=== PATIENT | female | born 1995 | race Caucasian/White ===

== ENCOUNTER 2017-09-20 20:50 | Emergency (ER) | payer MEDICAID, OTHER ==
[2017-09-20 20:50] VITALS: BMI 31.3
[2017-09-20 21:09] VITALS: RESP 20
[2017-09-20] MEDS: Albuterol-Ipratrop 3 mg / 0.5 (3 ml) UD IH SCH ×2 (21:15→21:32)
--- NOTE | 2017-09-20 21:29 | C.PDOC ---
History Of Present Illness 22-year-old female, presents to the emergency department with complaints of three day duration of cough and worsening asthma. patient notes she ran out of her inhaler meds, prompting visit. Time Seen by Provider: 09/20/17 21:01 Chief Complaint (Nursing): Cough, Cold, Congestion History Per: Patient History/Exam Limitations: no limitations Past Medical History Reviewed: Historical Data, Nursing Documentation, Vital Signs Vital Signs: Last Vital Signs Temp 98.1 F 09/20/17 21:08 Pulse 97 H 09/20/17 21:08 Resp 20 09/20/17 21:08 BP 138/99 H 09/20/17 21:08 Pulse Ox 98 09/20/17 21:29 - Medical History PMH: Anemia, Asthma (NEVER HOSPITALIZED) - [facility] Procedures ARTIF RUPT MEMBRANES NEC (09/20/13) ASPIRAT CURET-POST DELIV (11/04/14) MONITORING NOS (09/20/13) LOW CERVICAL (09/20/13) Family History: States: No Known Family Hx - Social History Hx Alcohol Use: No Hx Substance Use: No - Immunization History Hx Tetanus Toxoid Vaccination: No Hx Influenza Vaccination: No Hx Pneumococcal Vaccination: No Review Of Systems Constitutional: Negative for: Fever Cardiovascular: Negative for: Chest Pain, Palpitations Respiratory: Positive for: Cough, Shortness of Breath, Wheezing Gastrointestinal: Negative for: Vomiting Physical Exam - Physical Exam Appears: Well, Non-toxic, No Acute Distress Skin: Normal Color, Warm, Dry, No Rash Head: Normacephalic Eye(s): bilateral: PERRL Nose: Normal, No Flaring, No Discharge Oral Mucosa: Moist Neck: Normal ROM Chest: Symmetrical Cardiovascular: Rhythm Regular, No Murmur Respiratory: No Decreased Breath Sounds, No Accessory Muscle Use, Wheezing ( mild expiratory) Extremity: Normal ROM Neurological/Psych: Oriented x3, Normal Speech ED Course And Treatment O2 Sat by Pulse Oximetry: 98 Medical Decision Making Medical Decision Making: Impression 22y/o F comes in with cough and asthma exacerbation x3 days. Plan: * Duoneb treatment * peak flow * Urine preg= neg * CXR Reassess and Disposition CXR shows no focal consolidation, infiltrates, pleural effusion or pneumothorax On re-eval, patient has no fever or in any respiratory distress. She reports feeling better. Her O2 saturation has improved. Rx given. Patient is stable for discharge Disposition Counseled Patient/Family Regarding: Diagnosis, Need For Followup, Rx Given - Disposition Disposition: HOME/ ROUTINE Disposition Time: 22:00 Condition: IMPROVED Additional Instructions: Continue using albuterol nebulizer as needed Take prednisone daily to help with asthma Please follow up with your primary medical doctor or clinic in 2-5 days for further evaluation. Return to the emergency department at any time if symptoms persist or worsen. Prescriptions: Albuterol 0.083% [Albuterol 0.083% Inhal Claribel (2.5 mg/3 ml) UD] 2.5 mg IH Q4 # 100 neb Albuterol HFA [Ventolin HFA 90 mcg/actuation (8 g)] 1 puff IH Q4 #1 puff Benzonatate [Tessalon Perles] 100 mg PO TID #30 sgl Prednisone 50 mg PO DAILY #5 tablet Instructions: Asthma, Adult (DC) Forms: [employer] (Paraguayan) - POA Present On Arrival: None - Clinical Impression Clinical Impression: Upper respiratory infection, Asthma exacerbation - Scribe Statement The provider has reviewed the documentation as recorded by the Scribe (Dex Valdivia) All medical record entries made by the Scribe were at my direction and personally dictated by me. I have reviewed the chart and agree that the record accurately reflects my personal performance of the history, physical exam, medical decision making, and the department course for this patient. I have also personally directed, reviewed, and agree with the discharge instructions and disposition.
[2017-09-20] MEDS ORDERED: Albuterol-Ipratrop 3 mg / 0.5 (3 ml) UD ONE (21:37)
[2017-09-20 22:31] VITALS: BP 129/83; PULSE 99; TEMP 98.3
[2017-09-20 22:35] VITALS: O2SAT 98
--- NOTE | 2017-09-21 08:51 | RAD ---
HISTORY: cough, sOB COMPARISON: Chest radiograph dated 08/24/2011 TECHNIQUE: Chest PA and lateral FINDINGS: LUNGS: No active pulmonary disease. PLEURA: No significant pleural effusion identified. No pneumothorax apparent. CARDIOVASCULAR: Normal. OSSEOUS STRUCTURES: No significant abnormalities. VISUALIZED UPPER ABDOMEN: Normal. OTHER FINDINGS: None. IMPRESSION: No active disease.
== END 2017-09-20 22:31 | disposition home or self-care (01) ==
LOC: C.ER 20:50
DX: J45.901 Unspecified asthma with (acute) exacerbation (principal); J06.9 Acute upper respiratory infection, unspecified; F17.210 Nicotine dependence, cigarettes, uncomplicated

== ENCOUNTER 2018-02-10 18:35 | Emergency (ER) | payer OTHER ==
[2018-02-10 18:36] VITALS: BMI 31.3
[2018-02-10 18:42] VITALS: BP 143/96; PULSE 98; RESP 20; TEMP 98.2; O2SAT 97
[2018-02-10] MEDS ORDERED: Naproxen 550 mg Tab PO STA (19:39)
[2018-02-10] MEDS ORDERED: Naproxen 550 mg Tab PO ONE (19:47)
--- NOTE | 2018-02-10 20:09 | C.PDOC ---
History Of Present Illness The patient reports non-traumatic right lower leg pain over the past 3 days which is described as constant and achy. The patient reports that she works at [employer] and stands for over 12 hours per day. Denies trauma, fever, numbness, weakness. Time Seen by Provider: 02/10/18 19:27 Chief Complaint (Nursing): Lower Extremity Problem/Injury History Per: Patient History/Exam Limitations: no limitations Onset/Duration Of Symptoms: Days (3) Current Symptoms Are (Timing): Still Present Recent travel outside of the [place] States: No Past Medical History Reviewed: Historical Data, Nursing Documentation, Vital Signs Vital Signs: Last Vital Signs Temp 98.2 F 02/10/18 18:38 Pulse 98 H 02/10/18 18:38 Resp 20 02/10/18 18:38 BP 143/96 H 02/10/18 18:38 Pulse Ox 97 02/11/18 03:21 - Medical History PMH: Anemia, Asthma (NEVER HOSPITALIZED) - [facility] Procedures ARTIF RUPT MEMBRANES NEC (09/20/13) ASPIRAT CURET-POST DELIV (11/04/14) MONITORING NOS (09/20/13) LOW CERVICAL (09/20/13) Family History: States: No Known Family Hx - Social History Hx Alcohol Use: No Hx Substance Use: No - Immunization History Hx Tetanus Toxoid Vaccination: No Hx Influenza Vaccination: No Hx Pneumococcal Vaccination: No Review Of Systems Constitutional: Negative for: Fever, Chills Gastrointestinal: Negative for: Nausea, Vomiting, Abdominal Pain, Diarrhea Musculoskeletal: Positive for: Leg Pain (Right lower leg ) Skin: Negative for: Rash Neurological: Negative for: Weakness, Numbness Physical Exam - Physical Exam Appears: Well, Non-toxic, No Acute Distress Skin: Normal Color, Warm, Dry Head: Atraumatic, Normacephalic Eye(s): bilateral: Normal Inspection, PERRL, EOMI Oral Mucosa: Moist Neck: Supple Chest: Symmetrical, No Tenderness Cardiovascular: Rhythm Regular, No Murmur Respiratory: Normal Breath Sounds, No Decreased Breath Sounds, No Rales, No Rhonchi, No Wheezing Gastrointestinal/Abdominal: Soft, No Tenderness, No Distention Extremity: Normal ROM, Tenderness (Right anterior leg ), No Deformity, No Swelling Extremity: Bilateral: Atraumatic, Normal Color And Temperature, Normal ROM Pulses: Left Dorsalis Pedis: Normal, Right Dorsalis Pedis: Normal Neurological/Psych: Oriented x3, Normal Speech Gait: Steady ED Course And Treatment O2 Sat by Pulse Oximetry: 97 (RA) Pulse Ox Interpretation: Normal Medical Decision Making Medical Decision Making: Ordered X-Ray of right Ribia Fibula, D-Dimer, and urine test. Administered Anaprox. D dimer is negative and the patient has a low risk for DVT. Xray of the tib/fib is negative for fracture or dislocation. The pain is most likely muscular and on re-exam the patient reports improvement of symptoms and ambulatory in the ED with steady gait. Disposition - Disposition Referrals: Vicki Montilla MD [Medical Doctor] - Disposition: HOME/ ROUTINE Disposition Time: 20:44 Condition: GOOD Additional Instructions: Follow up with the medical doctor/clinic within 1-2 days. Return if worsened. 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 - Scribe Statement The provider has reviewed the documentation as recorded by the Susanibafsaneh Coleman All medical record entries made by the Susanibe were at my direction and personally dictated by me. I have reviewed the chart and agree that the record accurately reflects my personal performance of the history, physical exam, medical decision making, and the department course for this patient. I have also personally directed, reviewed, and agree with the discharge instructions and disposition.
--- NOTE | 2018-02-11 08:42 | RAD ---
Date of service: 02/10/2018 PROCEDURE: Radiographs of the right tibia and fibula. HISTORY: leg pain COMPARISON: None available. TECHNIQUE: Frontal and lateral views obtained. FINDINGS: BONES: No fracture or destructive lesion. JOINT SPACES: Unremarkable. OTHER FINDINGS: None. IMPRESSION: Unremarkable radiographs of the right tibia and fibula.
== END 2018-02-10 20:50 | disposition home or self-care (01) ==
LOC: C.ER 18:35
DX: S86.891A Other injury of other muscle(s) and tendon(s) at lower leg level, right leg, initial encounter (principal); X58.XXXA Exposure to other specified factors, initial encounter; M79.1 Myalgia

== ENCOUNTER 2018-08-15 22:47 | Emergency (ER) | payer OTHER ==
[2018-08-15 22:47] VITALS: BMI 31.3
[2018-08-15 23:06] VITALS: BP 134/92; PULSE 96; TEMP 97.7; O2SAT 97
--- NOTE | 2018-08-16 00:57 | C.PDOC ---
History Of Present Illness 23 year old female presents to the ER with a complaint of sore throat, fever, chills, headache, nasal congestion, and cough since yesterday. Patient has been taking motrin with some relief. She also reports a Hx of asthma but denies wheezing or SOB. Chief Complaint (Nursing): Flu-like Symptoms History Per: Patient History/Exam Limitations: no limitations Onset/Duration Of Symptoms: Days (Yesterday) Current Symptoms Are (Timing): Still Present Location Of Pain: None Sick Contacts (Context): None Associated Symptoms: Fever, Chills, Sore Throat, Cough, Nasal Congestion, Other (Headache) Ear Symptoms: Bilateral: None Recent travel outside of the [place]: No Past Medical History Reviewed: Historical Data, Nursing Documentation, Vital Signs Vital Signs: Last Vital Signs Temp 97.7 F 08/15/18 23:00 Pulse 96 H 08/15/18 23:00 Resp 18 08/15/18 23:00 BP 134/92 H 08/15/18 23:00 Pulse Ox 97 08/15/18 23:00 - Medical History PMH: Anemia, Asthma (NEVER HOSPITALIZED) Denies: Chronic Kidney Disease - [facility] Procedures ARTIF RUPT MEMBRANES NEC (09/20/13) ASPIRAT CURET-POST DELIV (11/04/14) MONITORING NOS (09/20/13) LOW CERVICAL (09/20/13) Family History: States: Unknown Family Hx - Social History Hx Alcohol Use: No Hx Substance Use: No - Immunization History Hx Tetanus Toxoid Vaccination: No Hx Influenza Vaccination: No Hx Pneumococcal Vaccination: No Review Of Systems Constitutional: Positive for: Fever, Chills Eyes: Negative for: Pain, Redness ENT: Positive for: Nose Congestion, Throat Pain Cardiovascular: Negative for: Chest Pain Respiratory: Positive for: Cough. Negative for: Shortness of Breath, Wheezing Gastrointestinal: Negative for: Nausea, Vomiting, Diarrhea Genitourinary: Negative for: Dysuria, Hematuria Musculoskeletal: Negative for: Back Pain Skin: Negative for: Rash Neurological: Positive for: Headache. Negative for: Weakness, Numbness, Dizziness Physical Exam - Physical Exam Appears: Non-toxic Skin: Normal Color, Warm, No Rash Head: Atraumatic, Normacephalic, No Tenderness (Sinus) Eye(s): bilateral: Normal Inspection, PERRL, EOMI Ear(s): Bilateral: Normal Nose: Other (Enlarged turbinates) Oral Mucosa: Moist Throat: Normal (No swelling or injection), No Exudate, Other (Able to swallow own secretions) Neck: Normal ROM, Supple Lymphatic: No Adenopathy Chest: Symmetrical, No Tenderness Cardiovascular: Rhythm Regular Respiratory: Normal Breath Sounds, No Rales, No Rhonchi, No Wheezing Gastrointestinal/Abdominal: Soft, No Tenderness Extremity: Normal ROM (x4) Neurological/Psych: Oriented x3, Normal Speech, Normal Cranial Nerves (Grossly intact) Gait: Steady ED Course And Treatment O2 Sat by Pulse Oximetry: 97 (Room air) Pulse Ox Interpretation: Normal Medical Decision Making Medical Decision Making: Flu and strep were negative, will treat for URI and flu like illness, will give Rx for albuterol inhaler and work excuse as per patient's request. Disposition Counseled Patient/Family Regarding: Studies Performed, Diagnosis, Need For Followup - Disposition Referrals: [facility] [Outside] Disposition: HOME/ ROUTINE Disposition Time: 00:54 Condition: STABLE Prescriptions: Albuterol HFA [Ventolin HFA 90 mcg/actuation (8 g)] 2 puff IH [id number] #1 inhaler Cetirizine HCl/Pseudoephedrine [Zyrtec-D Tablet] 1 each PO DAILY #14 tab.er.12h Ibuprofen [Motrin Tab] 600 mg PO TID 10 Days tab Instructions: Viral Upper Respiratory Infection, Adult (DC) Forms: General Discharge Instructions, [facility] (Sami), Work Excuse - Clinical Impression Clinical Impression: Influenza-like illness - 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 - Scribe Statement The provider has reviewed the documentation as recorded by the Scribe Alfa Ochoa All medical record entries made by the Susanibafsaneh were at my direction and personally dictated by me. I have reviewed the chart and agree that the record accurately reflects my personal performance of the history, physical exam, medical decision making, and the department course for this patient. I have also personally directed, reviewed, and agree with the discharge instructions and disposition.
[2018-08-16 01:03] VITALS: RESP 20
== END 2018-08-16 01:02 | disposition home or self-care (01) ==
LOC: C.ER 22:47
DX: J11.1 Influenza due to unidentified influenza virus with other respiratory manifestations (principal)